=== PATIENT | male | born 1975 | race Two or more races ===

== ENCOUNTER 2025-05-21 11:20 | Emergency (ER) | payer MEDICAID, SELFPAY ==
[2025-05-21 11:47] VITALS: BP 137/88; PULSE 79; RESP 18; TEMP 36.8; O2SAT 97
--- NOTE | 2025-05-21 11:50 | EDNOTE_ITS ---
ED Abdominal Pain RME/HPI General Chief Complaint: Abdominal Pain Stated complaint: Hernia X 2 months Time seen by provider: 05/21/25 11:28 Arrival date/time: 05/21/25 11:20 RME / HPI RME / HPI narrative: 49-year-old male patient came in for evaluation regarding right inguinal mass. Patient has been having right inguinal mass for several months, it comes and goes, severity mild. Patient denies any vomiting denies any abdominal pain denies any inguinal pain. Patient have not seen any MD due to insurance problem. Patient had no insurance. Related Data Allergies Allergy/AdvReac Type Severity Reaction Status Date / Time No Known Allergies Allergy Verified 05/21/25 11:25 Review of Systems Review of Systems Narrative Review of Systems: Review of system reviewed and within normal limits except mentioned in HPI ED Exam Narrative Physical exam: VITAL SIGNS: Reviewed. GENERAL APPEARANCE: Alert and interactive, follows commands, no acute distress, HEAD AND FACE: Non-traumatic. ENT: PERRL, pink conjunctivitis, eyelid no trauma, Mucous membrane moist. NECK: Supple, nontender, no nuchal rigidity. CHEST: No tenderness, no crepitus, no paradoxical movement, no retractions. LUNGS: Clear, well ventilated, symmetric, no rales, no wheezing, no ronchi, no stridor, good breath sounds bilaterally. HEART: Regular rate, regular rhythm, no murmur, no gallops. ABDOMEN: Soft, positive bowel sounds, nondistended, no guarding, nontender, no rebound, no masses, RECTAL: Deferred. GENITAL: Right inguinal mass, which is nontender, and easily reducible. NEUROLOGICAL: Gross motor function intact sensory function intact, Appropriate for age. MUSCULOSKELETAL: low back nontender, full range of motion. EXTREMITIES: Nontender, full range of motion. SKIN: Color pink, dry, no rash, no lacerations, no abrasions, no contusions. LYMPHATICS: Deferred. Course Quality Measures none Vital Signs Vital signs: Vital Signs Temperature 98.3 F 05/21/25 11:47 Pulse Rate 79 05/21/25 11:47 Respiratory Rate 18 05/21/25 11:47 Blood Pressure 137/88 H 05/21/25 11:47 Pulse Oximetry (%) 97 05/21/25 11:47 Oxygen Delivery Method Room Air 05/21/25 11:47 Abdominal Pain MDM MDM Narrative MDM Narrative:: 49-year-old male patient came in for evaluation regarding right inguinal mass. Patient has been having right inguinal mass for several months, it comes and goes, severity mild. Patient denies any vomiting denies any abdominal pain denies any inguinal pain. Patient have not seen any MD due to insurance problem. Patient had no insurance. Patient is having reducible inguinal hernia, patient is asymptomatic no pain no vomiting no fever. Patient does not need any workup at this time. Patient was advised to establish a PCP and for referral to general surgeon. Was also advised to return to emergency room for pain, fever, vomiting. Patient agrees with the plan Patient data External records reviewed:: None Clinical information provided by:: patient Social determinants that could affect healthcare access:: none Patient has the following chronic illnesses:: None How is presenting disease/condition affected by chronic disease/condition?: no chronic disease Evaluation data The following diagnostics were reviewed and interpreted by me:: other (specify) (None) Lab and/or radiology exams considered but not ordered:: None Interpretation Summary: None Medications / Prescriptions Medications or Prescriptions considered but not ordered:: None none Medication administrations:: None Consultations Consultation(s) initiated? (list below): No Diagnosis Differential diagnosis abdominal pain: abdominal pain and pancreatitis (Inguinal hernia, incarcerated inguinal hernia, reducible inguinal hernia) Most likely diagnosis given after review of the tests above:: Reducible inguinal hernia Admission Indicated Admission indicated?: not indicated Explain why admission is indicated or not indicated:: None Admission Request Was there a request for admission?: No Disposition Plan Disposition Plan: Discharge Discharge Attestation Discharge Attestation: The patient and all family members were given an opportunity to ask questions and understood the discharge instructions. Discharge instructions specifically effects, indications for sooner follow up or return to the emergency department, and the expected course of current diagnosis. Patient condition: Stable Discharge Plan Plan Patient Disposition: HOME (Self Care) Discharge Disposition comment: Stable Problem List Clinical Impression: Reducible right inguinal hernia Patient/Caregiver Discharge Instructions Discharge Activity: activity as tolerated Education Materials: What Is a Hernia? Additional Instructions: Thank you for the opportunity for serving you today. You are stable for discharged . You are advised to: Establish a PCP, and ask your PCP to refer you to a surgeon for definitive management of your right inguinal hernia. Use hernia support for now until seen by general surgeon Return to ED for worsening of symptoms, pain, vomiting, fever Increase oral fluids Avoid lifting heavy for now. Print Language: Indonesian Stand Alone Forms: [employer]oselin Award Info., Patient Portal Info Letter PA/[employer] Supervising Physician NAVA/DELIA Supervising Physician: MD Kendrick
[2025-05-21 12:22] VITALS: BP 139/88; PULSE 70; RESP 17; TEMP 36.6; O2SAT 97
== END 2025-05-21 12:22 | disposition home or self-care (01) ==
LOC: SERX 12:04
PROVIDERS: Emergency Provider Emergency Medicine
DX: K40.90 Unilateral inguinal hernia, without obstruction or gangrene, not specified as recurrent (principal)
CPT/HCPCS: 99281

== ENCOUNTER → 2025-07-21 | Outpatient (CLI) | payer MEDICAID, SELFPAY ==
--- NOTE | 2025-07-21 11:30 | XR_ITS ---
Examination: Pelvic ultrasound, transabdominal, complete Technique: Transabdominal ultrasound of the pelvis performed using grayscale imaging Date and time of exam: July 21, 2025 1135 hours INDICATIONS: Right groin and pelvic pain beginning 4 years ago. FINDINGS: Prostate 2.1 x 1.9 x 2.1 cm volume 4.4 cc, no prostate nodules Right groin hernia 3.9 x 2.6 x 2.5 cm IMPRESSION: Right inguinal hernia 3.9 x 2.6 x 2.5 cm
== END | disposition home or self-care (01) ==
LOC: CDIM 11:23
DX: K40.90 Unilateral inguinal hernia, without obstruction or gangrene, not specified as recurrent (principal)
CPT/HCPCS: 76856